=== PATIENT | male | born 1975 ===

== ENCOUNTER 2018-09-09 12:11 | Day surgery (SDC) | payer OTHER ==
[2018-09-09] MEDS ORDERED: HEPARIN-NS 5,000 UNITS/500 ML 5,000 UNIT/500 ML BAG IV ONE (13:17)
[2018-09-09] MEDS ORDERED: Propofol 10 mg/ml Inj (20 ML) ONE (13:17)
[2018-09-09] MEDS ORDERED: Midazolam 2 MG/2 ML VIAL ONE ×2 (13:18→15:50)
[2018-09-09] MEDS ORDERED: ceFAZolin 1 gm in NS 1 GM/100 ML BAG IVPB ONE (13:18)
[2018-09-09 15:30] VITALS: BMI 27.4
--- NOTE | 2018-09-09 15:30 | PCM.SURG1 ---
Surgeon's Initial Post Op Note - Surgeon's Notes Surgeon: Dr. Carter Director Zone: Dr. Jett PGY-3, Kaylee MS3 Type of Anesthesia: General LMA Pre-Operative Diagnosis: End Stage Renal Disease Operative Findings: See operative report Post-Operative Diagnosis: Same Operation Performed: left arm Brachio-basilic AVF Specimen/Specimens Removed: none Estimated Blood Loss: EBL {In ML}: 50 Blood Products Given: N/A Drains Used: No Drains Post-Op Condition: Good Date of Surgery/Procedure: 09/09/18 Time of Surgery/Procedure: 15:30
[2018-09-09] MEDS ORDERED: HYDROmorphone 0.5 mg/0.5 ml ISec ONE ×2 (15:32→15:39)
[2018-09-09] MEDS: HYDROmorphone 0.5 mg/0.5 ml ISec IVP PRN ×3 (15:32→16:17)
[2018-09-09] MEDS ORDERED: Midazolam 2 MG/2 ML VIAL IM STA (15:54)
[2018-09-09 16:41] VITALS: TEMP 98.1
[2018-09-09 17:56] VITALS: BP 137/77; PULSE 77; RESP 18; O2SAT 100
--- NOTE | 2018-09-09 23:43 | OP ---
PROCEDURE DATE: 09/09/2018 PREOPERATIVE DIAGNOSIS: Renal failure. POSTOPERATIVE DIAGNOSIS: Renal failure. PROCEDURE CARRIED OUT: Brachiobasilic fistula, left elbow. SURGEON: Travis Carter Jr., MD ARCHITECTURAL DRAFTING INSTRUCTOR: Margie Jett DO ANESTHESIOLOGIST: Juliet Herrmann CRNA INDICATIONS: The patient is a middle-aged man with variety of emotional problems with history of cutting on his forearm, who presents with renal failure requiring dialysis. OPERATIVE FINDINGS: The fistula was created between the brachial artery above its bifurcation and the adjacent basilic vein which is of its size. There were no forearm veins, and there was no visible cephalic vein on preoperative Duplex imaging done by me at the bedside. Immediately before the operation, test for this was carried out and anastomosis in a spatulated fashion between brachial artery and the basilic vein. This was done using loupe magnification, heparin anticoagulation, and loupe vessel control. At the completion of the anastomosis, there was excellent Doppler flow to the hand, but no longer palpable pulse, and there was excellent flow to the fistula. Blood loss for the procedure was less than 25 mL. Operation carried out was brachiobasilic fistula, left elbow, most likely this will require mobilization in the future. Travis Carter Jr., MD cc: Dr. Sutherland.
== END 2018-09-09 18:09 | disposition home or self-care (01) ==
LOC: C.SDS 12:11
PROVIDERS: ATTEND Surgery Vascular Surgery
DX: N18.6 End stage renal disease (principal); Z99.2 Dependence on renal dialysis
CPT/HCPCS: 36821; J0690; J1170; J1644; J2250; J2704; J3010

== ENCOUNTER 2018-12-22 07:53 | Day surgery (SDC) | payer MEDICAID ==
[2018-12-22 08:01] VITALS: BMI 25.0
[2018-12-22 09:34] LABS: CALCIUM 8.9 mg/dl (8.6-10.4)
[2018-12-22] MEDS ORDERED: Dextrose 50% SYRINGE Inj (50 ml) IV ONE (10:00)
[2018-12-22] MEDS ORDERED: Papaverine Hydrochloride 30 mg/ml (2ml) ONE (10:10)
[2018-12-22] MEDS ORDERED: HEPARIN-NS 5,000 UNITS/500 ML 0 UNIT/0 ML BAG IV ONE (10:11)
[2018-12-22] MEDS ORDERED: ceFAZolin 1 gm in NS 1 GM/100 ML BAG IVPB ONE (10:11)
[2018-12-22] MEDS ORDERED: Midazolam 2 MG/2 ML VIAL ONE (10:27)
[2018-12-22] MEDS ORDERED: Propofol 10 mg/ml Inj (20 ML) ONE (10:27)
[2018-12-22] MEDS ORDERED: Oxycodone/Acetaminophen 5/325 mg Tab PO PRN (12:20)
--- NOTE | 2018-12-22 12:24 | PCM.SURG1 ---
Surgeon's Initial Post Op Note - Surgeon's Notes Surgeon: Dr. Carter Bunghole Borer: Yevgeniy PGY2 Type of Anesthesia: General LMA Anesthesia Administered By: KE WHITAKER Pre-Operative Diagnosis: ESRD on HD, immature LUE AVF Operative Findings: immature LUE AVF, deep basillic vein Post-Operative Diagnosis: ESRD on HD, immature LUE AVF Operation Performed: Transposition of left basillic vein AVF Specimen/Specimens Removed: N/A Estimated Blood Loss: EBL {In ML}: 50 Blood Products Given: N/A Drains Used: No Drains Post-Op Condition: Good Date of Surgery/Procedure: 12/22/18 Time of Surgery/Procedure: 12:23
[2018-12-22] MEDS: HYDROmorphone 0.5 mg/0.5 ml ISec IVP PRN ×2 (12:30→12:45)
[2018-12-22 13:10] VITALS: RESP 26; O2SAT 99
[2018-12-22] MEDS ORDERED: Sodium Chloride 0.9% 500 ML IV ONE (13:23)
[2018-12-22 13:33] VITALS: BP 147/72; PULSE 82; TEMP 97.5
--- NOTE | 2018-12-23 00:01 | OP ---
PROCEDURE DATE: 12/22/2018 PREOPERATIVE DIAGNOSIS: Renal failure, immature fistula, left arm. POSTOPERATIVE DIAGNOSIS: Renal failure, immature fistula, left arm. PROCEDURE CARRIED OUT: Revision of AV fistula with creation of basilic vein transposition. SURGEON: Travis Carter Jr, MD DIRECTOR LEARNING: Hugo Vuong DO TYPE OF ANESTHESIA: General ANESTHESIA ADMINISTERED BY: Mr. Elam. INDICATIONS: The patient is a middle-aged man with renal insufficiency with a variety of other medical problems including emotional problems who did not show up for his postoperative visit. He came in last week with sutures in his arm from three months ago. We were able to remove his sutures and scheduled him now for revision so that this could be accessible. Preoperative ultrasound shows that the vein was fairly close to the skin but it was still unable to be accessed. OPERATIVE FINDINGS: The vein was of good size, measuring between 8 and 10 mm. The rest of the intraoperative findings were unremarkable. DESCRIPTION OF PROCEDURE: The patient was given general anesthesia, intravenous antibiotics. The vein was marked with ultrasound. We then mobilized the vein starting from the elbow up to the axilla. After this had been completely mobilized, we ligated the cocopah branches. There was some troublesome bleeding from one retracted branch. After we controlled this, there was no other events of note. We then positioned the vein graft in the subcutaneous position and closed the fascia beneath it. Blood loss from procedure was 50 mL. Operation carried out, revision of AV fistula, left arm with creation of basilic vein transposition. Travis Carter Jr., MD cc: Dr. Sutherland.
== END 2018-12-22 15:54 | disposition home or self-care (01) ==
LOC: C.SDS 07:53
PROVIDERS: ATTEND Surgery Vascular Surgery
DX: T82.590A Other mechanical complication of surgically created arteriovenous fistula, initial encounter (principal); I12.0 Hypertensive chronic kidney disease with stage 5 chronic kidney disease or end stage renal disease; E11.22 Type 2 diabetes mellitus with diabetic chronic kidney disease; N18.6 End stage renal disease; Z99.2 Dependence on renal dialysis; J44.9 Chronic obstructive pulmonary disease, unspecified; E78.5 Hyperlipidemia, unspecified
CPT/HCPCS: 36415; 36819; 80048; 82948; J0690; J1170; J2250; J2704; J3010; J7030; J7040; J7050